=== PATIENT | male | born 1955 | race Caucasian/White ===

== ENCOUNTER 2024-08-30 20:04 | Emergency (ER) | payer MEDICARE, OTHER, SELFPAY ==
[2024-08-30 20:07] VITALS: BP 160/99
--- NOTE | 2024-08-30 20:07 | ED.GENMED ---
ED Provider Triage
<Shadi Huff PA-C - Last Filed: 08/30/24 20:09>
-
Patient seen by provider in Triage?: Seen in Triage
Attestation: A medical screening examination has been initiated by a qualified medical provider. Based on the assessment performed at this time, it has been determined that an emergent medical condition may exist and the patient has been informed
that further medical evaluation and possible additional diagnostic testing may be needed.
HPI: 68-year-old male presenting to the emergency department request of primary care provider for 1 week of nausea vomiting and diarrhea. Patient has been somewhat lightheaded as well. No syncopal episodes. 1 month ago was traveling to [place] and
[place]. No known sick contact. No recent antibiotics. Labs and stool studies ordered
GENERAL: Alert , in no apparent distress
EYE: No visual abnormalities.
NECK: Trachea midline
ENT: No visible abnormalities.
LUNGS: No acute respiratory distress
NEUROLOGICAL: Alert and oriented
SKIN: Skin intact. No visible changes.
MUSCULOSKELETAL: Moving extremities normally
PSYCH: Normal and appropriate interaction.
This is a medical evaluation conducted in person to initiate diagnostic evaluation and provide initial therapeutics. Please see further documentation by the treating clinician.
History of Present Illness
<Shadi Huff PA-C - Last Filed: 08/30/24 20:09>
General
Chief Complaint: Dehydration Symptoms
Time Seen by Provider: 08/30/24 22:46
<Stephen Tipton DO - Last Filed: 08/30/24 23:27>
General
Source: patient
Exam Limitations: none
History of Present Illness
History of Present Illness:
See MDM
Past History
<Stephen Tipton DO - Last Filed: 08/30/24 23:27>
Past History
ED Past Medical History: HTN and Hypercholesterolemia
ED Past Surgical History: Urological
Social History
Tobacco: Non-smoker
Alcohol: None
Phy Exam
<Stephen Tipton DO - Last Filed: 08/30/24 23:27>
Physical Exam
Physical Exam:
See MDM
Course
<Shadi Huff PA-C - Last Filed: 08/30/24 20:09>
Orders/Labs/Results
Orders:
Orders
08/30/24 20:08
STOOL [C difficile Antigen & Toxins] Urgent
ALEX Source: Feces/Stool
Specimen Description:
Date Specimen was Collected: 08/30/24
Time Specimen was Collected: 20:19
Stool Culture Urgent
ALEX Source: Feces/Stool
Specimen Description:
Date Specimen was Collected: 08/30/24
Time Specimen was Collected: 20:19
08/30/24 20:18
CMP [Comprehensive Metabolic Panel] Urgent
Complete Blood Count/With Diff Urgent
Abnormal Lab Results
08/30/24
20:18
RBC 4.43 L 10^6/uL
(4.70-6.10)
Absolute Lymphs (auto) 1.0 L 10^3/uL
(1.2-3.4)
Absolute Monos (auto) 0.7 H 10^3/uL
(0.1-0.6)
Immature Gran % 0.6 H %
(0-0.5)
Lymphocytes % 16.1 L %
(20.5-51.1)
Monocytes % 11.3 H %
(1.7-9.3)
Sodium 132 L mmol/L
(135-145)
Chloride 91 L mmol/L
(98-107)
BUN 38 H mg/dl
(9-20)
Creatinine 1.6 H mg/dL
(0.7-1.3)
Glucose 113 H mg/dl
(70-99)
Calcium 10.4 H mg/dl
(8.4-10.2)
Albumin 5.3 H g/dl
(3.5-5.0)
08/30/24 20:18
08/30/24 20:18
Vital Signs
Initial and Last Documented VS:
Initial Vital Signs
Temp Pulse Resp BP Pulse Ox
97.8 F 87 17 160/99 100
08/30/24 20:07 08/30/24 20:07 08/30/24 20:07 08/30/24 20:07 08/30/24 20:07
Last Documented Vital Signs
Temp Pulse Resp BP Pulse Ox
97.8 F 65 18 123/103 100
08/30/24 20:07 08/30/24 22:45 08/30/24 22:45 08/30/24 22:44 08/30/24 22:45
<Stephen Tipton, DO - Last Filed: 08/30/24 23:27>
Orders/Labs/Results
Orders:
Orders
08/30/24 20:08
STOOL [C difficile Antigen & Toxins] Urgent
ALEX Source: Feces/Stool
Specimen Description:
Date Specimen was Collected: 08/30/24
Time Specimen was Collected: 20:19
Stool Culture Urgent
ALEX Source: Feces/Stool
Specimen Description:
Date Specimen was Collected: 08/30/24
Time Specimen was Collected: 20:19
08/30/24 20:18
CMP [Comprehensive Metabolic Panel] Urgent
Complete Blood Count/With Diff Urgent
Abnormal Lab Results
08/30/24
20:18
RBC 4.43 L 10^6/uL
(4.70-6.10)
Absolute Lymphs (auto) 1.0 L 10^3/uL
(1.2-3.4)
Absolute Monos (auto) 0.7 H 10^3/uL
(0.1-0.6)
Immature Gran % 0.6 H %
(0-0.5)
Lymphocytes % 16.1 L %
(20.5-51.1)
Monocytes % 11.3 H %
(1.7-9.3)
Sodium 132 L mmol/L
(135-145)
Chloride 91 L mmol/L
(98-107)
BUN 38 H mg/dl
(9-20)
Creatinine 1.6 H mg/dL
(0.7-1.3)
Glucose 113 H mg/dl
(70-99)
Calcium 10.4 H mg/dl
(8.4-10.2)
Albumin 5.3 H g/dl
(3.5-5.0)
08/30/24 20:18
08/30/24 20:18
Vital Signs
Initial and Last Documented VS:
Initial Vital Signs
Temp Pulse Resp BP Pulse Ox
97.8 F 87 17 160/99 100
08/30/24 20:07 08/30/24 20:07 08/30/24 20:07 08/30/24 20:07 08/30/24 20:07
Last Documented Vital Signs
Temp Pulse Resp BP Pulse Ox
97.8 F 65 18 123/103 100
08/30/24 20:07 08/30/24 22:45 08/30/24 22:45 08/30/24 22:44 08/30/24 22:45
<Stephen Tipton, DO - Last Filed: 08/30/24 23:27>
MDM/Problems Addressed
Differential Diagnosis Includes:
HPI and MDM Narrative:
68-year-old male presenting from PCPs office for dehydration. Patient has had diarrhea over the past week. He denies any fevers or blood. He denies any recent travel. No sick contacts. On exam, patient has very soft and nontender abdomen.
Blood work was obtained prior to my evaluation showing mild dehydration related lab abnormalities such as mild elevated BUN and creatinine.
Given no fever and normal white blood cell count, doubt bacterial infectious diarrhea. Will obtain stool culture and C. difficile and provide IV fluids
Physical exam
General: Well appearing and non-toxic
HEENT: protecting airway. Very mild dry mucous membrane
Neck: appears supple
CV: No evidence of cyanosis
Resp: No accessory muscle use
Abd: Non-distended. Soft and nontender
Extremities: No deformities
Neuro: alert
Psych: Normal affect
Skin: Intact
Problems Addressed including Acute and Chronic Conditions affecting care:
1. Diarrhea
Acuity: acute
Prognosis: stable
Details: Likely viral. Will obtain stool cultures. Patient given IV fluid
Updates
After IV fluids, patient feeling somewhat better. I did offer a second bag but patient feels comfortable going home. Discussed the stool sample will be run tomorrow. Patient feels comfortable going home
Differential Diagnosis (but not limited to): Gastroenteritis, C. difficile, colitis
Testing considered: CT abdomen/pelvis but he has no abdominal tenderness
Drug therapy (if applicable): OTC meds, please see d/c instruction regarding Rx drugs
Amount and/or Complexity of Data Reviewed
Clinical info obtained from: Patient
External data reviewed: N/A
Labs I independently reviewed (but not limited to): Mild elevation in BUN and creatinine
Radiology: N/A
Pulse Ox: not hypoxic
EKG independently reviewed: N/A
Clinical Account Specialist: N/A
Critical Care: N/A
Risk of Complication:
Social Determinants of health: Good social support
Discussed with other providers: N/A
Escalation of Care includes Admit/Obs: After being observed in the Emergency Department, pt stable for discharge.
Occasional wrong word or 'sound a like' substitutions may have occurred due to the inherent limitations of voice recognition software. Read the chart carefully and recognize, using context, where substitutions have occurred.
<Stephen Tipton DO - Last Filed: 08/30/24 23:27>
*Critical Care Note
Total Time (30-74mins, 75-104mins- exclusive of procedures): Not Applicable
ED Attending Note
<Shadi Huff PA-C - Last Filed: 08/30/24 20:09>
-
Portions of this chart may have been created with voice recognition software.� Occasional wrong word or��sound alike� substitutions may have occurred due to the inherent limitations of voice recognition software.
Discharge Plan
Departure
Patient Disposition: Home (Routine Discharge)
Date of Disposition: 08/30/24
Time of Disposition: 23:27
Patient with high blood pressure during this ER visit?: Yes
Discharge Problem:
Diarrhea
Instructions: Diarrhea, Adult ED, BLOOD PRESSURE
Activity Restrictions/Additional Instructions:
Please return for any worsening symptoms.
You may return at any time if you have further concerns.
Please follow up with your doctor at the first available appointment, preferably this week. The stool culture is still pending.
Thank you for choosing [facility].
Interventions
Interventions:
*Risk Screen - Suicide Last Done: 08/30/24 20:07
*General Assessment Last Done: 08/30/24 20:07
*Neglect/Abuse Screening Last Done: 08/30/24 20:07
*ED COVID-19 Vaccine History Last Done: 08/30/24 22:41
EO-Fdkbef-Dkpyrtvkpd Assessment Last Done: 08/30/24 22:47
ED- Cardiac Assessment Last Done: 08/30/24 22:47
ED- Neurological Assessment Last Done: 08/30/24 22:47
ED- Pulmonary Assessment Last Done: 08/30/24 22:47
Discharge Date and Time
Print Language: BENGALI
[2024-08-30 20:41] LABS: % Basophils 0.5 % (0-2); % Eosinophils 1.9 % (0-6); % Immature Granulocytes 0.6 % (0-0.5); % Lymphocytes 16.1 % (20.5-51.1); % Monocytes 11.3 % (1.7-9.3); % Neutrophils 69.6 % (42.2-75.2); Absolute Eosinophils 0.1 10^3/uL (0-0.7); Absolute Monocytes 0.7 10^3/uL (0.1-0.6); Absolute Neutrophils 4.5 10^3/uL (1.4-6.5); Hematocrit 39.4 % (39.0-52.0); Hemoglobin 13.3 g/dL (13.0-18.0); Mean Corp Hgb Conc. 33.8 g/dL (33.0-37.0); Mean Corpuscular Volume 88.9 fL (80.0-94.0); Mean Platelet Volume 9.4 fL (7.4-10.4); Nucleated Red Blood Cells % 0 % (-); Platelet Count 340 10^3/uL (130-400); Red Blood Cell Count 4.43 10^6/uL (4.70-6.10); Red Cell Dist. Width 12.4 % (11.5-14.5); White Blood Cell Count 6.5 10^3/uL (4.8-10.8)
[2024-08-30 20:55] LABS: ALT (SGPT) 33 U/L (0-50); AST (SGOT) 45 U/L (17-59); Albumin 5.3 g/dl (3.5-5.0); Alkaline Phosphatase 51 U/L (38-126); Blood Urea Nitrogen 38 mg/dl (9-20); Calcium 10.4 mg/dl (8.4-10.2); Carbon Dioxide 23 mmol/L (22-30); Chloride 91 mmol/L (98-107); Glucose 113 mg/dl (70-99); Potassium 3.6 mmol/L (3.5-5.1); Sodium 132 mmol/L (135-145); Total Bilirubin 0.8 mg/dl (0.2-1.3); eGFR 46.93
[2024-08-30 22:41] VITALS: BMI 27.0
[2024-08-30 22:44] VITALS: BP 123/103
[2024-08-30 23:00] VITALS: BP 121/72
[2024-08-31] VITALS: BP 116/69
== END 2024-08-31 00:17 | disposition home or self-care (01) ==
LOC: EMR 20:04
PROVIDERS: EMERGENCY PHYSICIAN Student in an Organized Health Care Education/Training Program; FAMILY PHYSICIAN Student in an Organized Health Care Education/Training Program
DX: R19.7 Diarrhea, unspecified (principal); I10 Essential (primary) hypertension
CPT/HCPCS: 99283; 80053; 85025; 87045; 87046; 87324; 87427; 87449

== ENCOUNTER → 2024-09-27 11:54 | Outpatient (REF) | payer MEDICARE, SELFPAY | LOC: HWRAD 11:54 | PROVIDERS: ATTENDING PHYSICIAN Student in an Organized Health Care Education/Training Program; FAMILY PHYSICIAN Student in an Organized Health Care Education/Training Program | DX: M10.9 Gout, unspecified (principal) | CPT/HCPCS: 73120 ==

== ENCOUNTER → 2025-02-25 09:17 | Outpatient (REF) | payer OTHER, SELFPAY | LOC: HWRAD 09:17 | PROVIDERS: ATTENDING PHYSICIAN Family Medicine Geriatric Medicine; FAMILY PHYSICIAN Student in an Organized Health Care Education/Training Program | DX: Z91.89 Other specified personal risk factors, not elsewhere classified (principal); Z79.818 Long term (current) use of other agents affecting estrogen receptors and estrogen levels | CPT/HCPCS: 77080 ==

== ENCOUNTER 2025-04-05 06:19 | Day surgery (SDC) | payer OTHER, SELFPAY | END 2025-04-05 10:03 | disposition home or self-care (01) | LOC: GI 06:19 | PROVIDERS: ATTENDING PHYSICIAN Internal Medicine Gastroenterology | DX: K52.9 Noninfective gastroenteritis and colitis, unspecified (principal); K57.30 Diverticulosis of large intestine without perforation or abscess without bleeding; K64.8 Other hemorrhoids; K55.20 Angiodysplasia of colon without hemorrhage; D12.2 Benign neoplasm of ascending colon | CPT/HCPCS: 45385; 45380; 88305 ==

== ENCOUNTER 2025-08-09 10:25 | Emergency (ER) | payer OTHER, SELFPAY ==
[2025-08-09 10:37] VITALS: BP 152/104
[2025-08-09 12:05] VITALS: BP 131/92; BMI 28.8
[2025-08-09 12:33] LABS: Hematocrit 32.9 % (39.0-52.0); Hemoglobin 10.9 g/dL (13.0-18.0); Mean Corp Hgb Conc. 33.1 g/dL (33.0-37.0); Mean Corpuscular Volume 97.9 fL (80.0-94.0); Nucleated Red Blood Cells % 0 % (-); Platelet Count 188 10^3/uL (130-400); Red Cell Dist. Width 13.7 % (11.5-14.5)
[2025-08-09 12:39] LABS: ALT (SGPT) 33 U/L (0-50); AST (SGOT) 46 U/L (17-59); Albumin 4.4 g/dl (3.5-5.0); Alkaline Phosphatase 34 U/L (38-126); Blood Urea Nitrogen 17 mg/dl (9-20); Calcium 9.1 mg/dl (8.4-10.2); Carbon Dioxide 25 mmol/L (22-30); Chloride 108 mmol/L (98-107); Estimated Creatinine Clearance 73 ml/min; Glucose 90 mg/dl (70-99); Potassium 4.4 mmol/L (3.5-5.1); Sodium 139 mmol/L (135-145); Total Protein 6.7 g/dl (6.3-8.2); eGFR > 60.00
--- NOTE | 2025-08-09 12:50 | ED.GENMED ---
History of Present Illness
General
Chief Complaint: Fainting Sensation
Time Seen by Provider: 08/09/25 11:45
History of Present Illness
History of Present Illness:
69-year-old male presents to the emergency department for evaluation of a near syncopal event that occurred while at the curtain stretcher today. States that shortly after getting anesthetic drops in the eyes bilaterally he felt very dizzy and
lightheaded. Blood pressure was checked x 2 by his curtain stretcher and was noted to be apparently below 80 systolic. He did not lose consciousness. Was transported via EMS to the hospital. Currently feels well with no complaints. Denies chest
pain or dyspnea. No headache or vision changes. No extremity paresthesias. Not on any home antihypertensives
Past History
Past History
ED Past Medical History: HTN and Hypercholesterolemia
ED Past Surgical History: Urological
Social History
Tobacco: Non-smoker
Alcohol: None
Review of Systems
Review of Systems
Allergies reviewed?: Yes
All Other Systems: ROS reviewed and negative except as documented in HPI and ROS
Phy Exam
Physical Exam
Physical Exam:
GEN: Well appearing, NAD, WDWN
HEENT: Oral mucosa moist, no scleral icterus
Cardiac: Regular rate and rhythm, no murmurs
Lung: No respiratory distress, no tachypnea, lungs clear to auscultation bilaterally
MSK: No gross deformity or injuries
Skin: Good color, no pallor or jaundice, no rashes
Neuro: AO x3, cranial nerves II through XII grossly intact, moves all extremities freely
Psych: Calm, cooperative
Course
Orders/Labs/Results
Orders:
Orders
08/09/25 10:41
Electrocardiogram (*1) Urgent
Reason for Study: Chest Pain
EKG- Treatment ONCE
08/09/25 12:12
Complete Blood Count/With Diff Urgent
Comprehensive Metabolic Panel Urgent
Abnormal Lab Results
08/09/25
12:12
WBC 3.9 L 10^3/uL
(4.8-10.8)
RBC 3.36 L 10^6/uL
(4.70-6.10)
Hgb 10.9 L g/dL
(13.0-18.0)
Hct 32.9 L %
(39.0-52.0)
MCV 97.9 H fL
(80.0-94.0)
MCH 32.4 H pg
(27.0-31.0)
Absolute Lymphs (auto) 0.4 L 10^3/uL
(1.2-3.4)
Neutrophils % 77.3 H %
(42.2-75.2)
Lymphocytes % 10.8 L %
(20.5-51.1)
Chloride 108 H mmol/L
(98-107)
Alkaline Phosphatase 34 L U/L
(38-126)
08/09/25 12:12
08/09/25 12:12
Vital Signs
Initial and Last Documented VS:
Initial Vital Signs
Temp Pulse Resp BP Pulse Ox
98.4 F 60 16 152/104 99
08/09/25 10:37 08/09/25 10:37 08/09/25 10:37 08/09/25 10:37 08/09/25 10:37
Last Documented Vital Signs
Temp Pulse Resp BP Pulse Ox
97.6 F 74 18 133/72 100
08/09/25 13:14 08/09/25 13:14 08/09/25 13:14 08/09/25 13:14 08/09/25 13:14
MDM/Problems Addressed
MDM/Problems Addressed:
Likely a vasovagal near syncopal event, clinically well with no lab abnormalities. Suitable for discharge to home
Comment
Comment:
EKG independently interpreted by me shows a sinus bradycardia at a rate of [address] changes concerning for ischemia, QTc of 407
*Pulse Oximetry
SaO2: 95
Oxygen Mode of Delivery: Room air
Patient hypoxic: no
*Critical Care Note
Total Time (30-74mins, 75-104mins- exclusive of procedures): Not Applicable
ED Attending Note
-
Portions of this chart may have been created with voice recognition software.� Occasional wrong word or��sound alike� substitutions may have occurred due to the inherent limitations of voice recognition software.
Discharge Plan
Departure
Patient Disposition: Home (Routine Discharge)
Date of Disposition: 08/09/25
Time of Disposition: 12:50
Patient with high blood pressure during this ER visit?: No
Discharge Problem:
Vasovagal near syncope
Instructions: Near Fainting (DC)
Referrals:
Niru Arias MD [Family Provider, Family Practice]
Interventions
Interventions:
*Risk Screen - Suicide Last Done: 08/09/25 10:37
*General Assessment Last Done: 08/09/25 12:05
*Neglect/Abuse Screening Last Done: 08/09/25 12:05
*ED- Fall Risk Assessment Last Done: 08/09/25 12:05
*ED COVID-19 Vaccine History Last Done: 08/09/25 12:05
*ED Influenza Vaccine History Last Done: 08/09/25 12:05
*Nursing Disposition Last Done: 08/09/25 13:14
ED- Cardiac Assessment Last Done: 08/09/25 12:05
ED- Neurological Assessment Last Done: 08/09/25 12:05
Discharge Date and Time
Discharge Date/Time: 08/09/25 13:15
Print Language: MAORI
[2025-08-09 13:12] VITALS: BP 120/72; BP 133/72; BP 145/83; PULSE 66; PULSE 67; PULSE 74
--- NOTE | 2025-08-09 13:12 | EDRN ---
Reviewed discharge instructions with patient. Verbalized understanding. Ambulated with steady gait to the lobby.
[2025-08-09 13:14] VITALS: BP 133/72
== END 2025-08-09 13:15 | disposition home or self-care (01) ==
LOC: EMR 10:25
PROVIDERS: Physician Assistant; EMERGENCY PHYSICIAN Student in an Organized Health Care Education/Training Program; FAMILY PHYSICIAN Student in an Organized Health Care Education/Training Program
DX: R55 Syncope and collapse (principal); I10 Essential (primary) hypertension; E78.00 Pure hypercholesterolemia, unspecified
CPT/HCPCS: 99284; 80053; 85025; 93005